=== PATIENT | male | born 1945 | race Caucasian/White ===

== ENCOUNTER → 2024-03-17 08:38 | Outpatient (REF) | payer MEDICARE, BC, SELFPAY ==
[2024-03-17 12:11] LABS: Urine Albumin Negative (Neg - Trace); Urine Bilirubin Negative (Negative); Urine Character Clear (Clear); Urine Color Yellow; Urine Glucose Negative (Negative); Urine Ketone Negative (Negative); Urine Leukocyte Negative (Negative); Urine Nitrite Negative (Negative); Urine Occult Blood Negative (Negative); Urine Urobilinogen Negative (Neg - 1+); Urine pH 6.5 (5.0-9.0)
[2024-03-17 12:13] LABS: % Basophils 1.1 % (0-2); % Eosinophils 2.1 % (0-6); % Immature Granulocytes 0.2 % (0-0.5); % Lymphocytes 33.9 % (20.5-51.1); % Monocytes 9.6 % (1.7-9.3); % Neutrophils 53.1 % (42.2-75.2); Absolute Basophils 0.1 10^3/uL (0-0.2); Absolute Eosinophils 0.1 10^3/uL (0-0.7); Absolute Lymphocytes 2.1 10^3/uL (1.2-3.4); Absolute Monocytes 0.6 10^3/uL (0.1-0.6); Absolute Neutrophils 3.3 10^3/uL (1.4-6.5); Hematocrit 46.1 % (39.0-52.0); Hemoglobin 15.5 g/dL (13.0-18.0); Mean Corp Hgb Conc. 33.6 g/dL (33.0-37.0); Mean Corpuscular Hgb 30.5 pg (27.0-31.0); Mean Corpuscular Volume 90.7 fL (80.0-94.0); Mean Platelet Volume 11.1 fL (7.4-10.4); Nucleated Red Blood Cells % 0 % (-); Platelet Count 202 10^3/uL (130-400); Red Blood Cell Count 5.08 10^6/uL (4.70-6.10); Red Cell Dist. Width 12.4 % (11.5-14.5); White Blood Cell Count 6.2 10^3/uL (4.8-10.8)
[2024-03-17 12:41] LABS: ALT (SGPT) 25 U/L (0-50); AST (SGOT) 30 U/L (17-59); Albumin 4.5 g/dl (3.5-5.0); Alkaline Phosphatase 79 U/L (38-126); Blood Urea Nitrogen 21 mg/dl (9-20); Calcium 9.7 mg/dl (8.4-10.2); Carbon Dioxide 28 mmol/L (22-30); Chloride 99 mmol/L (98-107); Glucose 122 mg/dl (70-99); HDL Cholesterol 44 mg/dl; LDL Cholesterol, Calculated 77 mg/dl; Potassium 4.8 mmol/L (3.5-5.1); Sodium 136 mmol/L (135-145); Total Bilirubin 2.3 mg/dl (0.2-1.3); Total Cholesterol 156 mg/dl (50-199); Total Protein 6.9 g/dl (6.3-8.2); Triglyceride 177 mg/dl (10-149); Very Low Density Lipoprotein 35 mg/dl (0-30); eGFR > 60.00
[2024-03-17 13:09] LABS: TSH 2.72 uIU/ml (0.47-4.68)
[2024-03-19 20:18] LABS: PSA Total 2.4 ng/mL (0.0-4.0)
== END ==
LOC: HWLAB 08:38
PROVIDERS: ATTENDING PHYSICIAN Family Medicine
DX: E78.5 Hyperlipidemia, unspecified (principal); Z79.01 Long term (current) use of anticoagulants; R73.03 Prediabetes; E78.2 Mixed hyperlipidemia; E66.3 Overweight; N40.1 Benign prostatic hyperplasia with lower urinary tract symptoms
CPT/HCPCS: 36415; 80053; 80061; 81003; 83036; 84153; 84154; 84443; 85025

== ENCOUNTER → 2024-09-21 08:04 | Outpatient (REF) | payer MEDICARE, BC, SELFPAY ==
[2024-09-21 09:49] LABS: Blood Urea Nitrogen 25 mg/dl (9-20); Calcium 9.4 mg/dl (8.4-10.2); Carbon Dioxide 21 mmol/L (22-30); Chloride 108 mmol/L (98-107); Glucose 121 mg/dl (70-99); Potassium 4.6 mmol/L (3.5-5.1); Sodium 139 mmol/L (135-145); eGFR > 60.00
== END ==
LOC: HWLAB 08:04
PROVIDERS: ATTENDING PHYSICIAN Internal Medicine
DX: R73.03 Prediabetes (principal)
CPT/HCPCS: 36415; 80048

== ENCOUNTER → 2024-12-01 07:58 | Outpatient (REF) | payer MEDICARE, BC, SELFPAY | LOC: HWRCS 07:58 | PROVIDERS: ATTENDING PHYSICIAN Nurse Practitioner; FAMILY PHYSICIAN Family Medicine | DX: I48.0 Paroxysmal atrial fibrillation (principal); I34.0 Nonrheumatic mitral (valve) insufficiency | CPT/HCPCS: 93306 ==

== ENCOUNTER → 2025-01-20 09:39 | Outpatient (REF) | payer MEDICARE, BC, SELFPAY | LOC: RCS 09:39 | PROVIDERS: ATTENDING PHYSICIAN Nurse Practitioner Gerontology; FAMILY PHYSICIAN Family Medicine | DX: I48.19 Other persistent atrial fibrillation (principal) | CPT/HCPCS: 93225; 93226 ==